=== PATIENT | male | born 2000 | race Caucasian/White ===

== ENCOUNTER 2022-10-03 16:12 | Emergency (ER) | payer OTHER ==
[2022-10-03] MEDS ORDERED: IBUPROFEN 600 MG TABLET (FP) PO ONE ×2 (16:19→16:24)
[2022-10-03 16:22] VITALS: BP 116/73; PULSE 86; RESP 16; TEMP 98.9; BMI 24.4
== END 2022-10-03 17:24 | disposition home or self-care (01) ==
LOC: FER 16:12
DX: R10.12 Left upper quadrant pain (principal); R07.89 Other chest pain
CPT/HCPCS: 71045-TC-FY; 93005; 99284-25